=== PATIENT | male | born 1985 | race African-American/Black ===

== ENCOUNTER 2019-06-09 11:38 | Emergency (ER) | payer OTHER, SELFPAY | END 2019-06-09 12:02 | disposition home or self-care (01) | LOC: NAV ERS 11:38 | DX: Z20.2 Contact with and (suspected) exposure to infections with a predominantly sexual mode of transmission (principal); F31.9 Bipolar disorder, unspecified; F90.9 Attention-deficit hyperactivity disorder, unspecified type; F17.210 Nicotine dependence, cigarettes, uncomplicated | CPT/HCPCS: 99281 ==

== ENCOUNTER 2020-05-30 22:22 | Emergency (ER) | payer OTHER, SELFPAY ==
[2020-05-31 16:58] LABS: SARS-CoV-2 MS2 Positive; SARS-CoV-2 N Gene Negative; SARS-CoV-2 S Gene Negative; SARS-CoV-2 by NAA Not Detected (NotDetected); SARS-CoV-2 orf1ab Negative
== END 2020-05-30 22:51 | disposition home or self-care (01) ==
LOC: NAV ERS 22:22
DX: R05 Cough (principal); R11.0 Nausea; M79.10 Myalgia, unspecified site; Z20.828 Contact with and (suspected) exposure to other viral communicable diseases; F31.9 Bipolar disorder, unspecified; F90.9 Attention-deficit hyperactivity disorder, unspecified type; F17.210 Nicotine dependence, cigarettes, uncomplicated
CPT/HCPCS: 87635; 99283; U0003

== ENCOUNTER 2021-08-03 17:48 | Emergency (ER) | payer SELFPAY | END 2021-08-03 18:29 | disposition left against medical advice (07) | LOC: NAV ERS 17:48 | DX: N50.82 Scrotal pain (principal); N50.812 Left testicular pain; F17.210 Nicotine dependence, cigarettes, uncomplicated | CPT/HCPCS: 99284 ==